=== PATIENT | female | born 2005 | race Caucasian/White ===

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

== ENCOUNTER 2023-01-24 22:44 | Emergency (ER) | payer OTHER ==
[~2023-01-24] VITALS: Ht 165.1 cm; Wt 83.5 kg
[2023-01-24 22:47] VITALS: BP 134/86
--- NOTE | 2023-01-24 22:47 | NUR ---
to bed ambulatory
--- NOTE | 2023-01-24 23:22 | NUR ---
Dr. Reid examining patient.
--- NOTE | 2023-01-24 23:30 | NUR ---
Pt taken to RAD for imaging.
--- NOTE | 2023-01-24 23:54 | NUR ---
Patient discharged with v/s stable. Written and verbal after care instructions given and explained. Patient verbalized understanding. Ambulatory with steady gait. All questions addressed prior to discharge. Advised to follow up with PMD.
== END 2023-01-24 23:54 | disposition home or self-care (01) ==
LOC: MED 22:44
DX: R07.0 Pain in throat (principal); Z88.0 Allergy status to penicillin; Z79.899 Other long term (current) drug therapy
CPT/HCPCS: 70360; 99283